=== PATIENT | female | born 1985 | race Caucasian/White ===

== ENCOUNTER 2023-08-05 09:39 | Outpatient (AMB) | payer OTHER, SELFPAY ==
--- NOTE | 2023-08-05 09:55 | MHC.OFFVIS ---
Intake Vital Signs 08/05/23 09:57 Height 5 ft 3 in Weight 174 lb 2 oz BMI 30.8 BP 102/70 Blood Pressure Location Rt brachial Position Sitting Pulse 102 H Pulse Source Pulse Oximeter Temp 98.2 F Temp Source Oral Pulse Oximetry (%) 97 Oxygen Delivery Method Room Air Intake Visit Reasons: EST/Pneumonia?(masked lobby) Intake Note: Pt presents to the office today for c/o chest congestion, body weakness, dry cough. Pt states her father girlfriend was just diagnosed with walking pneumonia a few days ago who she lives with. Pt also wanted to make us aware that she is 5 months Allergies No Known Allergies Allergy (Verified 08/05/23 10:00) HPI HPI Comments History of Present Illness Details The patient presents to urgent care for evaluation of cough. She states that her father's girlfriend was just diagnosed with pneumonia yesterday and the patient surgical coughing last night. She has nasal congestion and sore throat. No fever PFSH Social History Household Members: Family Housing: House Alcohol intake: never Patient Tobacco Use Status: Never used Tobacco Review of Systems ENT Denies dizziness, Reports nasal congestion and Reports sore throat Card Denies rapid heart rate, Denies dyspnea and Denies dyspnea on exertion Resp Denies dyspnea and Denies dyspnea on exertion GI Denies dyspepsia and Denies heartburn Musc Denies arthralgias and Denies muscle cramps Neuro Denies dizziness, Denies focal weakness and Denies Other visual disturbances Physical Exam Vital Signs: Last Vital Signs Temp 98.2 F 08/05/23 09:57 Pulse 102 H 08/05/23 09:57 BP 102/70 08/05/23 09:57 Pulse Ox 97 08/05/23 09:57 Oxygen Delivery Method Room Air 08/05/23 09:57 BMI result Body Mass Index 30.8 Const General: healthy appearing and no acute distress HEENT Mouth: Normal oral and palatal mucosa present Resp Effort & Inspection: normal respiratory effort and able to speak in complete sentences Auscultation: clear to auscultation bilaterally Cardio Rate: regular rate Rhythm: regular rhythm Assessment & Plan Assessment & Plan (1) Viral syndrome: Code(s): B34.9 - Viral infection, unspecified Plan Patient's symptoms are consistent with acute viral syndrome. Etiology unclear at this time. COVID and flu test was done. Patient is well appearing stable for outpatient management no need for antibiotics at this time. Patient was counseled on this. Recommended supportive care and OTC medications. Work note given. Orders: Orders SARS-CoV2/FLU/RSV Today R68.89 - Other general symptoms and signs Coding Level of Care Code Est Pt Level 3 (47985) Diagnoses Viral syndrome B34.9
[2023-08-05 09:57] VITALS: BP 102/70; PULSE 102; TEMP 36.8; O2SAT 97; BMI 30.8
== END 2023-08-05 10:25 | disposition home or self-care (01) ==
PROVIDERS: Visit Provider Emergency Medicine
DX: B34.9 Viral infection, unspecified (principal)
CPT/HCPCS: 99213

== ENCOUNTER 2023-08-05 10:23 | Outpatient (REF) | payer OTHER, SELFPAY ==
[2023-08-05 14:11] LABS: Influenza A PCR NEGATIVE (Negative); Influenza B PCR NEGATIVE (Negative); Resp Syncy Virus RNA Qual PCR NEGATIVE (Negative); SARS COV2 PCR INHOUSE NEGATIVE (Negative)
== END 2023-08-05 10:24 | disposition home or self-care (01) ==
LOC: HO.LAB 10:23
PROVIDERS: Visit Provider Emergency Medicine
DX: R68.89 Other general symptoms and signs (principal); Z11.52 Encounter for screening for COVID-19
CPT/HCPCS: 0241U